=== PATIENT | male | born 1950 | race Caucasian/White ===

== ENCOUNTER 2019-03-13 14:11 | Observation (INO) | payer MEDICARE, OTHER ==
--- NOTE | ~2019-03-13 | HEMODYNAMI ---
PATIENT:DEMARCUS HE MEDICAL RECORD: [id number] : [birth year] [facility] D[id number] ADMISSION DATE: 03/13/19 Generatedon:03/14/201911:34 Patient name: DEMARCUS HE Patient #: [id number] SSN: : 1950 Date of study: 03/14/2019 Page: Of Hemodynamic Procedure Report Patient Data Patient Demographics Procedure consent was obtained First Name: DEMARCUS Gender: Male Last Name: NERI : 1950 Patient #: [id number] Age: 68 year(s) Race: Unknown Additional ID: [id number] Contact details Address: [address] [place] [address] circle State: [place] City: [place] Zip code: [address] Past Medical History Allergies Allergen Reaction Date Comments Reported Other allergy 03/14/2019 SULFA, SHELLFISH Admission Admission Data Admission Date: 03/13/2019 Admission Time: 23:27 Room #: D.2117 Lab Results Lab Result Date: 03/14/2019 Lab Result Time: 0:00 Biochemistry Name Units Result Min Max BUN mg/dl 19 --(----)*- 7 18 Creatinine mg/dl 1.5 --(----)-* 0.6 1.3 CBC Name Units Result Min Max Hematocrit % 41.7 -*(----)-- 42 54 Hemoglobin g/dl 14.7 --(-*--)-- 13.5 17.5 Procedure Procedure Types Cath Procedure Diagnostic Procedure LHC LHC w/Coronaries w/Grafts Sedation Charges Moderate Sedation up to 15 minutes PCI Procedure AMI/SVG/POSTPARTUM RN PTCA or Stent SVG-BMS/KAUSHIK Initial Procedure Description Procedure Date Procedure Date: 03/14/2019 Procedure Start Time: 11:14 Procedure End Time: 11:30 Procedure Staff Name Function Dieog Vaughn MD Performing Physician Ghazala Knight RT Monitor Anam Celeste RT Scrub Hailey Russo RN Nurse Procedure Data Cath Procedure Fluoroscopy Diagnostic fluoroscopy Total fluoroscopy Time: 5.2 time: 5.2 min min Diagnostic fluoroscopy Total fluoroscopy dose: dose: 1045 mGy 1045 mGy Contrast Material Contrast Material Type Amount (ml) Isovue 300 141 Entry Location Entry Primary Successful Side Size Upsize Upsize Entry Closure Succes sful Closure Location (Fr) 1 (Fr) 2 (Fr) Remarks Device Remarks Femoral Right 5 Fr 6 Fr Exoseal artery Short Estimated blood loss: 10 ml Diagnostic catheters Device Type Used For End Catheter Placement MULTIPACK Pigtail 5 Fr Procedure catheter MULTIPACK JL 4.0 5Fr Procedure catheter MULTIPACK 3DRC 5Fr Procedure catheter DIAGNOSTIC AR2 MOD 5 Fr Procedure catheter ([id number]) Procedure Complications No complications Procedure Medications Medication Administration Route Dosage Oxygen etCO2 Nasal cannula 2 l/min Lidocaine 2% added to field 20 Heparin Flush Bag added to field 2 bags (1000units/500ml NS) 0.9% NaCl I.V. 100 ml/hr Versed I.V. 1 mg Fentanyl I.V. 50 mcg Versed I.V. 1 mg Fentanyl I.V. 50 mcg Heparin Bolus I.V. 4000 units Nitroglycerin IC/IA I.C. 200 mcg Plavix P.O. 75 mg Hemodynamics Rest HGB: 14.7 (g/dl) Heart Rate: 54 (bpm) Snapshots Pre Cath Intra NCS Post Cath Vital Signs Time Heart Resp SPO2 etCO2 NIBP (mmHg) Rhythm Pain Sedation Rate (ipm) (%) (mmHg) Status Level (bpm) 11:06:06 64 28 96 0 140/86(108) NSR 0 (11) 10(A) , No pain 11:10:22 52 26 94 12.6 129/83(99) NSR 0 (11) 10(A) , No pain 11:14:42 68 22 96 39.5 128/76(94) NSR 0 (11) 10(A) , No pain 11:18:52 70 20 96 38 115/80(97) NSR 0 (11) 9(A) , No pain 11:23:08 61 53 95 37.3 117/64(89) NSR 0 (11) 9(A) , No pain 11:27:22 68 20 95 41 106/71(91) NSR 0 (11) 10(A) , No pain 11:33:28 72 20 94 43.3 117/68(89) NSR 0 (11) 10(A) , No pain Medications Time Medication Route Dose Verified Delivered Reason Notes Effectiveness by by 11:09:10 Oxygen etCO2 2 Diego Hart used for Nasal l/min Roderick Russo RN procedure cannula 11:09:16 Lidocaine 2% added 20ml Diego Cortez for local to vial Roderick Vaughn MD anesthetic field 11:09:24 Heparin Flush added 2 Diego Cortez used for Bag to bags Roderick Vaughn MD procedure (1000units/500ml field NS) 11:09:32 0.9% NaCl I.V. 100 Diego Hart Per physician ml/hr Roderick Russo RN 11:13:01 Fentanyl I.V. 50 Diego Hart for sedation mcg Roderick Russo RN 11:13:55 Versed I.V. 1 mg Diego Garciaie for sedation Roderick Russo RN 11:15:22 Versed I.V. 1 mg Diego Hart for sedation Roderick Russo RN 11:15:28 Fentanyl I.V. 50 Diego Hart for sedation mcg Roderick Russo RN 11:21:53 Heparin Bolus I.V. 4000 Diego Hart for verif ied units Roderick Russo RN anticoagulation with dr vaughn 11:26:23 Nitroglycerin I.C. 200 Diegoshaquille Cortez for IC/IA mcg Roderick Vaughn MD vasodilation 11:32:19 Plavix P.O. 75 mg Diego Hart for Roderick Russo RN antiplatelet therapy Procedure Log Time Note 10:49:59 Signed procedure consent form obtained from patient. 10:50:00 Diagnostic Cath status Urgent 10:50:02 Hailey Russo RN sent for patient. Start room use. 10:53:20 Time tracking: Call back (After hours or weekends) 10:53:26 Plan of Care:Hemodynamics will remain stable., Cardiac rhythm will remain stable., Comfort level will be maintained., Respiratory function will remain adequate., Patient/ family verbilizes understanding of procedure., Procedure tolerated without complication., Recovers from procedure without complications.. 10:55:30 Patient allergic to Other allergySULFA, SHELLFISH 10:56:08 Lab Result : BUN 19 mg/dl 10:56:08 Lab Result : Hemoglobin 14.7 g/dl 10:56:08 Lab Result : Creatinine 1.5 mg/dl 10:56:08 Lab Result : Hematocrit 41.7 % 11:00:27 Patient received from Med II to CCL 1 Alert and oriented. Tansferred to table in Supine position. 11:00:28 Warm blankets applied, and nadre hugger turned on for patient comfort. 11:00:29 Correct patient and procedure confirmed by team. 11:00:29 ECG and BP/O2 sat monitors applied to patient. 11:05:04 Vital chart was started 11:05:06 Baseline sample Acquired. 11:09:10 Oxygen 2 l/min etCO2 Nasal cannula was administered by Hailey Russo RN; used for procedure; 11:09:16 Lidocaine 2% 20ml vial added to field was administered by Diego Vaughn MD; for local anesthetic; 11:09:24 Heparin Flush Bag (1000units/500ml NS) 2 bags added to field was administered by Diego Vaughn MD; used for procedure; 11:09:32 0.9% NaCl 100 ml/hr I.V. was administered by Hailey Russo RN; Per physician; 11:10:39 Rhythm: sinus rhythm 11:10:41 Full Disclosure recording started 11:10:43 Pre-procedure instructions explained to patient. 11:10:43 Pre-op teaching completed and patient verbalized understanding. 11:10:45 Family in patients room. 11:10:46 Patient NPO since Midnight. 11:10:49 Is patient on blood thinner?Yes 11:10:59 PRE LOADED IN THE ER 5.3.19 11:11:00 Patient diabetic? No. 11:11:04 Previous problem with sedation/anesthesia? No ? 11:11:05 Snore? Yes 11:11:07 Sleep apnea? No 11:11:07 Deviated septum? No 11:11:08 Opens mouth fully? Yes 11:11:09 Sticks out tongue? Yes 11:11:11 Airway obstruction? No ? 11:11:12 Dentures? No ? 11:11:14 Pre procedure: right dorsailis pedis pulse 2+ Normal; easily identifiable; not easily obliterated 11:11:18 Patient pain scale 0/10 ?. 11:11:27 IV patent on arrival in right hand with 0.9% NaCl at [facility]. 11:11:29 Lab results completed and on chart. 11:11:32 Right groin area was prepped with chlora-prep and draped in sterile fashion 11:11:33 Alarms reviewed by R. N. 11:11:34 Sharps counted by scrub and verified by R.N. 11:11:40 Is the patient allergic to Iodine/contrast media? Yes. 11:11:42 Was the patient premedicated? Yes 11:11:44 Use device set Femoral Dx 11:11:45 ACIST Syringe (41619) opened to sterile field. 11:11:46 Bag Decanter (2002S) opened to sterile field. 11:11:47 ACIST Hand Control (66256) opened to sterile field. 11:11:47 ACIST Manifold (22956) opened to sterile field. 11:11:49 Tegaderm 4 x 4 (1626W) opened to sterile field. 11:11:51 Medline Cath Pack ([id number]) opened to sterile field. 11:11:51 DIAGNOSTIC WIRE .035 260cm J wire (181603) opened to sterile field. 11:11:52 DIAGNOSTIC Multipack 5Fr catheter set (GE3473) opened to sterile field. 11:11:53 SHEATH 5FR [place] (WRO158) opened to sterile field. 11:12:13 --------ALL STOP TIME OUT------ 11:12:14 Final Timeout: patient, procedure, and site verified with staff and physician. All members of the team are in agreement. 11:12:15 Right groin site verified by team. 11:12:17 Maximum allowable Isovue 300 dose 300ml. Physician notified. (300ml for normal creatinines. For patients with creatinine of 1.7 or higher multiply weight(kg) x 5 divided by creatinine.) 11:12:21 Fire Safety Assessment: A--An alcohol-based skin anteseptic being used preoperatively., C--Open oxygen or nitrous oxide is being used., D--An ESU, laser, or fiber-optic light is being used. 11:12:24 Physical assessment completed. ASA score P 2 - A patient with mild systemic disease as per Diego Vaughn MD. 11:12:27 Sedation plan: IV Moderate Sedation Medication:Versed, Fentanyl 11:13:01 Fentanyl 50 mcg I.V. was administered by Buffie Russo RN; for sedation; 11:13:55 Versed 1 mg I.V. was administered by Hailey Russo RN; for sedation; 11:14:51 Procedure started. 11:14:54 Zero performed for pressure channel P1 11:14:58 Local anesthetic to right femoral artery with Lidocaine 2% by Diego Vaughn MD.INITIAL ACCESS ONLY 11:15:07 A 5 Fr sheath was inserted into the Right Femoral artery 11:15:09 Zero performed for pressure channel P1 11:15:16 Zero performed for pressure channel P1 11:15:22 Versed 1 mg I.V. was administered by Hailey Russo RN; for sedation; 11:15:28 Fentanyl 50 mcg I.V. was administered by Hailey Russo RN; for sedation; 11:15:28 A MULTIPACK Pigtail 5 Fr catheter was advanced over the wire and used for Procedure. 11:15:46 LV gram done using BORREGO 11:15:48 Injector settings: Ml/sec: 10, Volume: 20, 11:15:53 EF : 50 % 11:15:55 Zero performed for pressure channel P1 11:16:03 Zero performed for pressure channel P1 11:16:11 Catheter removed. 11:17:03 A MULTIPACK JL 4.0 5Fr catheter was advanced over the wire and used for Procedure. 11:17:06 LCA angiography performed. 11:17:08 Catheter removed. 11:17:13 A MULTIPACK 3DRC 5Fr catheter was advanced over the wire and used for Procedure. 11:18:22 DODGE to LAD angiography performed. 11:18:29 RCA angiography performed. 11:18:40 Catheter removed. 11:18:46 A DIAGNOSTIC AR2 MOD 5 Fr catheter ([id number]) was advanced over the wire and used for Procedure. 11:19:02 SHEATH 6FR [place] (YAD046) opened to sterile field. 11:19:02 CHOICE PT Extra Support 182cm wire ([id number]) opened to sterile field. 11:19:02 INFLATOR Merit BasixCompak (VU0786) opened to sterile field. 11:19:42 SVG to Circ angiography performed. 11:20:19 Catheter removed. 11:20:32 GUIDE 6FR AR 2.0 catheter ([id number]) opened to sterile field. 11:21:03 Sheath upsized to a 6 Fr Short. 11:21:39 6 Fr AR 2 guide catheter was inserted over the wire 11::53 Heparin Bolus 4000 units I.V. was administered by Hailey Russo RN; for anticoagulation; verified with dr vaughn 11:22:28 SVG to RCA occluded. 11::57 CHOICE ES 182 wire advanced. 11:23:05 Wire advanced across lesion. 11:23:50 Place stent Inflation Number: 1 A TWAN RX 2.5 x 15 stent ([id number]) was prepped and advanced across the Dist RCA. The stent was deployed at 15 KIKE for 0:10 (min:sec). 11:24:27 Stent catheter was removed intact over wire. 11:25:24 Wire removed. 11::23 Nitroglycerin IC/IA 200 mcg I.C. was administered by Diego Vaughn MD; for vasodilation; 11:27:29 Guide catheter removed. 11:27:31 EXOSEAL 6Fr (EX600) opened to sterile field. 11:28:01 Sheath removed intact; hemostasis achieved with Exoseal to the Right Femoral artery. 11:28:09 Procedure ended.(Physican Out) 11:28:37 Fluoroscopy time 05.20 minutes. 11:28:40 Fluoroscopy dose: 1045 mGy 11:28:40 Flurop Dose total: 1045 11:28:43 Contrast amount:Isovue 300 141ml. 11:28:44 Sharps counted by scrub and verified by R.N. 11:28:47 Post-op/insertion site Right Femoral artery dressed using a 4 x 4 and Tegaderm. 11:28:49 Post-procedure physical assessment completed. ASA score P 2 - A patient with mild systemic disease as per Diego Vaughn MD. 11:28:52 Post procedure rhythm: sinus rhythm 11:28:54 Estimated blood loss: 10 ml 11:28:56 Post procedure instruction explained to patient.Patient verbalizes understanding. 11::56 Patient needs reinforcement of post procedure teaching. 11:29:26 Procedure type changed to Cath procedure, Diagnostic procedure, LHC, LHC w/Coronaries w/Grafts, Sedation Charges, Moderate Sedation up to 15 minutes, PCI procedure, AMI/SVG/POSTPARTUM RN PTCA or Stent, SVG-BMS/KAUSHIK Initial 11:30:06 Procedure and supply charges have been captured, reviewed, submitted and are correct. 11:30:08 Procedure Complication : No complications 11:30:11 Vital chart was stopped 11:30:11 See physician's report for complete and final results. 11:30:14 Report given to [facility] II. 11:30:17 Patient transfered to [facility] with Bed. 11:30:18 Procedure ended. 11:30:18 Full Disclosure recording stopped 11:30:22 End room use (Document Last) 11:32:19 Plavix 75 mg P.O. was administered by Hailey Russo RN; for antiplatelet therapy; Intervention Summary Intervention Notes Time ActionType Lesion and Equipment Used Action# Pressure Duration Attributes 11:23:50 Place stent Dist RCA TWAN RX 2.5 x 1 15 00:10 15 stent ([id number]) Device Usage Item Name Manufacture Quantity Catalog Number Hospital Part Current M inimal Lot# / Charge Number Stock Stock Serial# Code ACIST Syringe Acist 1 03468 275552 801144 521892 2 0 (95724) Medical Systems Inc Bag Decanter Microtek 1 2001S 773537 02128 290911 5 (2001S) Medical Inc. ACIST Hand Acist 1 88113 259709 226347 109916 5 Control Medical (80709) Systems Inc ACIST Manifold Acist 1 74065 632724 418409 137541 5 (99013) Medical Systems Inc Tegaderm 4 x 4 3M 1 1626W 533040 109366 966216 5 (1626W) Medline Cath Medline 1 [id number] 165515 31597 076737 5 Pack ([id number]) DIAGNOSTIC [facility] [place] 1 498971 195294 512022 657966 3 0 WIRE .035 260cm J wire (804066) DIAGNOSTIC Cardinal 1 CZ7757 756406 93013 393788 3 0 Multipack 5Fr Health catheter set (YU9993) SHEATH 5FR Terumo 1 GNL784 169013 017450 594220 5 [place] (MPV365) MULTIPACK Cardinal 1 068713 5 Pigtail 5 Fr Health catheter MULTIPACK JL Cardinal 1 911628 5 4.0 5Fr Health catheter MULTIPACK 3DRC Cardinal 1 248910 5 5Fr catheter Health DIAGNOSTIC AR2 Cardinal 1 [id number] 653148 876443 731860 2 0 MOD 5 Fr Health catheter (559951H) SHEATH 6FR Terumo 1 SSO467 939869 252861 243747 4 0 [place] (ESJ352) CHOICE PT Lookout 1 [id number] 337584 387203 223260 5 Extra Support Scientific 182cm wire ([id number]) INFLATOR Merit Merit 1 XG9268 991241 367882 454952 1 5 [facility] Medical (VL7672) GUIDE 6FR AR Medtronic 1 LY2AE22 417340 94295 841295 1 2.0 catheter (HQ0KZ13) TWAN RX 2.5 x Medtronic 1 [id number] 886638 0883694 584873 5 [id number] 15 stent ([id number]) EXOSEAL 6Fr Cardinal 1 EX600 146539 189368 583475 1 0 (EX600) Health Signature Audit [place] Stage Time Signature Unsigned Intra-Procedure 03/14/2019 Ghazala Kngiht 11:34:05 AM RT(R) Signatures Monitor : Ghazala Knight Signature : RT Date : Time : [address] [place] [address]
[2019-03-13] MEDS ORDERED: LOPRESSOR25 MG PO (14:21)
[2019-03-13] MEDS ORDERED: COZAAR100 MG PO (14:21)
[2019-03-13] MEDS ORDERED: LIPITOR10 MG PO (14:22)
[2019-03-13] MEDS ORDERED: BAYER CHEWABLE81 MG PO (14:22)
[2019-03-13] MEDS ORDERED: HYDROCHLOROTHIA25 MG PO (14:22)
[2019-03-13 14:48] VITALS: BP 134/82
--- NOTE | 2019-03-13 14:51 | NUR ---
DR. CALLAHAN OFFICE CALLED TO ASK IF HE WOULD CONSENT TO LETTING PT HAVE A ASPIRIN FOR CHEST PAIN COMPLAINTS.HE OKAYED ASPIRIN.
[2019-03-13 14:55] LABS: BASOPHILS 0.1 % (0-2); EOSINOPHILS 1.8 % (0-7); HEMATOCRIT 41.7 % (42.0-54.0); HEMOGLOBIN 14.7 g/dL (13.5-17.5); MCH 30.9 pg (26.0-34.0); MCHC 35.3 g/dL (31.0-37.0); MCV 87.6 fL (80.0-100.0); MEAN PLATELET VOLUME 11.4 fL (7.4-10.4); MONOCYTES 6.6 % (2-11); NEUTROPHILS 74.5 % (40-80); RBC 4.76 10x6/uL (4.20-6.10); RDW 12.8 % (11.5-14.5); WBC 7.9 10x3/uL (4.8-10.8)
[2019-03-13 15:02] LABS: APTT 35.5 SECONDS (22.8-39.4); INR 1.05 (0.85-1.17); PROTIME 13.2 SECONDS (11.6-15.0)
[2019-03-13 15:03] LABS: PLATELET COUNT 217 10x3/uL (130-400)
[2019-03-13 15:37] LABS: ALBUMIN 3.1 g/dL (3.4-5.0); ALKALINE PHOSPHATASE 81 U/L (46-116); ALT (SGPT) 23 U/L (10-68); BILIRUBIN - TOTAL 0.58 mg/dL (0.2-1.3); CALC OSMOLALITY 284 mosm/kg (275-300); CALCIUM 8.4 mg/dL (8.5-10.1); CARBON DIOXIDE 27.1 mmol/L (21.0-32.0); CHLORIDE - SERUM 102 mmol/L (98-107); CREATININE - SERUM 1.5 mg/dL (0.6-1.3); GLUCOSE 197 mg/dL (74-106); POTASSIUM - SERUM 3.1 mmol/L (3.5-5.1); PROTEIN - SERUM 7.2 g/dL (6.4-8.2); SODIUM 139 mmol/L (136-145); UREA NITROGEN 19 mg/dL (7-18); eGFR NON AFRICAN AMERICAN 49 mL/min (90-120)
[2019-03-13 15:49] LABS: CKMB 0.6 U/L (0.0-3.6); CREATINE KINASE 38 UL (21-232); MAGNESIUM - SERUM 1.9 mg/dL (1.8-2.4)
[2019-03-13 15:51] LABS: TROPONIN-I < 0.017 ng/mL (0.000-0.060)
--- NOTE | 2019-03-13 17:35 | NUR ---
TRANSFER FROM ER BY W/C. PRANAVINTED TO ROOM. CALL LIGHT IN REACH. WILL CONT. PLAN OF CARE.
[2019-03-13 17:48] VITALS: BP 131/58; BMI 31.7
[2019-03-13 20:00] VITALS: BP 111/69
--- NOTE | 2019-03-13 20:23 | NUR ---
INITIAL ROUNDS AND ASSESMENT COMPLETED. PT IN ROOM WITH MULTIPLE FAMILY PRESENT. SR PER TELEMETRY. O2 @ 2L/NC WITH NONLABORED RESPIRATIONS. SALINE LOCK TO RFA. NO CHEST PAIN AT THIS TIME. INSTRUCTED ON NPO AFTER MIGNIGHT UNTIL SEEN BY DR CONNER IN AM. MONITOR AND CPOC.
[2019-03-14] VITALS: BP 110/59
--- NOTE | 2019-03-14 01:43 | NUR ---
RESTING IN BED WITH NO DISTRESS. CALL LIGHT IN REACH. MONITOR AND CPOC.
[2019-03-14 03:00] VITALS: BP 108/63
--- NOTE | 2019-03-14 07:30 | NUR ---
RECEIVED PT IN BED AAOX4 RESP UNLABORED SKIN W/D NAD NOTED
[2019-03-14 08:44] VITALS: BP 126/65
--- NOTE | 2019-03-14 10:50 | NUR ---
PT TO PROJECT MANAGEMENT ANALYST VIA BED
--- NOTE | 2019-03-14 11:31 | HP ---
PATIENT: DEMARCUS HE MEDICAL RECORD: [id number] ACCOUNT: [id number] LOCATION:[address] : [birth year] ADMISSION DATE: 03/13/19 PCP: FABIO VERGARA DO HISTORY AND PHYSICAL EXAMINATION DIAGNOSES: 1. Unstable angina. 2. Coronary artery disease. 3. Status post coronary bypass graft surgery. 4. Abnormal ECG. 5. Hypertension. 6. Hyperlipidemia. HISTORY OF PRESENT ILLNESS: This is a gentleman, who presents with unstable anginal symptomatology since Saturday. He has had pain in an increasing fashion. His pain was relieved with nitros yesterday. His EKG suggests lateral ischemia. He is on maximum medical therapy with losartan, metoprolol. His heart rate is in the 50s. His systolic blood pressure in the 100-110 region, hence there was no room for continued medical management. PHYSICAL EXAMINATION: GENERAL APPEARANCE: Well-nourished, well-developed, appears stated age. Level of distress, comfortable. PSYCHIATRIC: Mental status, alert, normal affect. Orientation, oriented to time, place and person. EYES: Lids and conjunctiva, noninjected. No discharge, no pallor. ENT: Lips, teeth, gums, normal dentition. Oropharynx, no cyanosis, no pallor. NECK: Carotid arteries, bilateral normal upstroke, no bruits, no thrills. JUGULAR VEINS: No jugular venous pressure or distention. CERVICAL LYMPH NODES: Nontender, nonenlarged. THYROID: Not enlarged. Nontender. No nodules. LUNGS: Respiratory effort, unlabored. CHEST: Normal curvature. No thoracic deformity. No chest wall tenderness. Percussion, resonant. Auscultation, clear. No wheezes, no rales, no rhonchi. CARDIOVASCULAR: Precordial exam, nondisplaced. No heaves or pericardial thrills. Rate and rhythm, regular. Heart sounds, normal S1, normal S2. No S3, no gallop, no rub. Systolic murmur, not heard. Diastolic murmur, not heard. EXTREMITIES: No cyanosis, no edema. Peripheral pulses, full and equal in all extremities, except as noted. No bruits appreciated. ABDOMEN: Soft, nondistended. Normal aorta. No bruit. Nontender. No masses. Liver, nontender, no hepatomegaly. Spleen, nontender, no splenomegaly. MUSCULOSKELETAL: No joint tenderness. No joint swelling. No erythema. NEUROLOGICAL: Normal gait, normal strength, normal tone. SKIN: Warm and dry. OVERALL IMPRESSION: Chest pain despite maximal medical therapy with abnormal ECG and a history of bypass surgery. Most likely, he has recurrent hemodynamically significant coronary artery disease or threatened graft failure. We will proceed with coronary angiography. Further care depends upon findings of the angiography. TRANSINT:[id number] Voice Confirmation ID: [id number] DOCUMENT ID: [id number] HISTORY AND PHYSICAL [id number] DEMARCUS HE JEFFREY MD at 1131 CC: [id number] DICTATION DATE: 03/14/19915 CLEANER AND TRIMMER: 03/14/19 0931 ADM IN [facility] [address] [place] [address]
[2019-03-14 12:00] VITALS: BP 112/63
--- NOTE | 2019-03-14 12:00 | NUR ---
RECEIVED PT BACK TO ROOM VIA BED FROM [facility] VSS PPPX4 DRSG TO RT GROIN C/D/I NO SIGNS OF BLEEDING
[2019-03-14 12:15] VITALS: BP 112/62
[2019-03-14] MEDS ORDERED: PLAVIX75 MG PO (12:35)
[2019-03-14 13:31] VITALS: BP 120/63
--- NOTE | 2019-03-14 18:15 | NUR ---
REVIEWED DISCHARGE INSTRUCTIONS WITH PT STATES UNDERSTANDING COPY GIVEN DCD SALINE LOCK TO RFA WITH IV CATHETER INTACT SITE FREE OF REDNESS OR EDEMA PT DISCHARGED HOME LEFT UNIT IN STABLE CONDITION WITH ALL PERSONAL BELONGINGS VIA W/C
--- NOTE | 2019-03-16 08:59 | MORECARE ---
CASE MANAGEMENT DISCHARGE SUMMARY PATIENT: DEMARCUS HE UNIT: [id number] ADM DATE: 03/13/19 AGE: 68 : [birth year] SEX: M ROOM/BED: D.2117 AUTHOR: BAILEE PENNY PHYSICIAN: REFERRING PHYSICIAN: GENA CONNER MD DATE OF SERVICE: 03/16/19 Discharge Plan Patient Name: DEMARCUS HE Facility: [facility]:[place] : 1950 Planned Disposition: Home Anticipated Discharge Date: 03/14/19 Discharge Date: 03/14/2019 Expected LOS: 1 Initial Reviewer: [email or web address] Initial Review Date: 03/16/2019 Generated: 03/16/19 9:58 am Patient Name: DEMARCUS HE Page 77907 at 0859 All edits/amendments must be made on the electronic document DICTATION DATE: 03/16/19 0858 VAMP PRESSER: CHERELLE 03/16/19 0858 RPT#: [id number] DC DATE:03/14/19 STATUS: DIS IN [facility] [address] [place] [address] END OF REPORT
--- NOTE | 2019-03-20 16:41 | OP ---
PATIENT NAME: DEMARCUS HE MEDICAL RECORD: [id number] :[birth year] LOCATION:D.M2 D.2117 ADMISSION DATE:03/13/19 SURGEON: GENA CONNER MD DATE OF OPERATION: 03/14/2019 PROCEDURES: 1. PTCA and stent of RCA. 2. Left heart catheterization. 3. Selective coronary angiography. 4. DODGE angiography. 5. Vein graft angiography. 6. Left ventriculogram. INDICATIONS: Unstable angina and coronary artery disease. DESCRIPTION OF PROCEDURE IN DETAIL: After informed consent was obtained and after detailed explanation of risks, benefits as well as alternative therapies, the patient elected to proceed with angiogram and angioplasty. The right femoral area was prepped and draped in normal sterile fashion. Right femoral artery was cannulated via modified Seldinger technique with placement of 6-Welsh sheath. All catheters exchanged through this sheath. FINDINGS: Left ventriculogram was performed in a standard 30-degree BORREGO view, reveals good cardiac wall motion throughout all segments. Overall ejection fraction estimated at 50%. SELECTIVE CORONARY ANGIOGRAPHY: 1. Left main is with no significant angiographic disease. 2. Left anterior descending has 80% to 90% stenosis in the mid proximal vessel. 3. The left circumflex has 80% to 90% stenosis in the mid vessel. 4. DODGE to the LAD is widely patent. Distal LAD is diffusely diseased, but widely patent. 5. Vein graft to circumflex is widely patent. Distal OM is widely patent. 6. Right coronary has a 90% stenosis in the mid vessel. 7. Vein graft to the RCA is closed. PTCA AND STENT OF THE RCA: The stent used is a 2.5 x 15-mm Carlito. Result was 0% residual stenosis. OVERALL IMPRESSION: Successful PTCA and stent of the RCA going from 90% initial stenosis to 0% residual. TRANSINT:[id number] Voice Confirmation ID: [id number] DOCUMENT ID: [id number] GENA CONNER MD at 1641 CC: [id number] DICTATION DATE: 03/14/19 1134 MASTER BLACK BELT: 03/14/19 1158 DIS IN 03/14/19 [facility] [address] [place] [address]
--- NOTE | 2019-03-20 16:41 | DS ---
PATIENT:DEMARCUS MCMAHAN :48 MEDICAL RECORD: [id number] DISCHARGE SUMMARY ADMISSION DATE: 03/13/19 DISCHARGE DATE: 03/14/19 DATE OF DISCHARGE: 03/14/2019. DIAGNOSES: 1. Unstable angina. 2. Coronary artery disease. 3. Percutaneous transluminal coronary angioplasty stent right coronary artery this admission. 4. Hypertension. 5. Hyperlipidemia. HOSPITAL COURSE: Mr. Mcmahan presents with unstable anginal symptomatology, found to have a close graft to the RCA and 90% stenosis of the RCA, underwent successful PTCA stent of the RCA, discharged home to follow up with [facility] 1 month with the addition of Plavix to his medical regimen. TRANSINT:[id number] Voice Confirmation ID: [id number] DOCUMENT ID: [id number] GENA CONNER MD at 1641 CC: [id number] DICTATION DATE: 03/14/19 1131 HEART SURGEON: 03/14/19 1155 DIS IN 03/14/19 [place] [id number] [place] [address]
== END 2019-03-14 18:15 | disposition home or self-care (01) ==
LOC: D.ER 14:11 → D.M2 14:11 → D.OPS 14:11 → EDSTATUS 15:59 → D.OPS 16:53 → D.M2 16:53 → EDSTATUS 23:26 → OBSVTIME 23:27 → D.M2 23:27
PROVIDERS: Family Medicine; ADMIT Internal Medicine Interventional Cardiology; ATTEND Internal Medicine Interventional Cardiology
DX: I25.110 Atherosclerotic heart disease of native coronary artery with unstable angina pectoris (principal); R94.31 Abnormal electrocardiogram [ECG] [EKG]; I10 Essential (primary) hypertension; E78.5 Hyperlipidemia, unspecified
CPT/HCPCS: 93459; C9600

== ENCOUNTER 2019-03-17 13:34 | Emergency (ER) | payer MEDICARE, OTHER ==
[~2019-03-17] VITALS: Ht 177.8 cm; Wt 95.5 kg
[~2019-03-17 13:34] MED LIST: BAYER CHEWABLE81 MG PO; COZAAR100 MG PO; HYDROCHLOROTHIA25 MG PO; LIPITOR10 MG PO; LOPRESSOR25 MG PO; PLAVIX75 MG PO
[2019-03-17 13:46] VITALS: Ht 177.8 cm; Wt 95.5 kg
[2019-03-17 14:02] LABS: BASOPHILS 0.3 % (0-2); EOSINOPHILS 3.5 % (0-7); HEMATOCRIT 41.9 % (42.0-54.0); HEMOGLOBIN 14.7 g/dL (13.5-17.5); IMMATURE GRANULOCYTES 0.5 % (0-5); LYMPHOCYTES 26.2 % (15-50); MCH 30.5 pg (26.0-34.0); MCHC 35.1 g/dL (31.0-37.0); MCV 86.9 fL (80.0-100.0); MEAN PLATELET VOLUME 10.3 fL (7.4-10.4); MONOCYTES 9.3 % (2-11); NEUTROPHILS 60.2 % (40-80); RBC 4.82 10x6/uL (4.20-6.10); RDW 12.4 % (11.5-14.5)
[2019-03-17 14:03] LABS: PLATELET COUNT 275 10x3/uL (130-400)
[2019-03-17 14:23] LABS: APTT 31.5 SECONDS (22.8-39.4); INR 1.03 (0.85-1.17)
[2019-03-17 14:28] LABS: ALBUMIN 3.3 g/dL (3.4-5.0); ALKALINE PHOSPHATASE 80 U/L (46-116); ALT (SGPT) 43 U/L (10-68); BILIRUBIN - TOTAL 0.23 mg/dL (0.2-1.3); CALC OSMOLALITY 285 mosm/kg (275-300); CALCIUM 8.9 mg/dL (8.5-10.1); CARBON DIOXIDE 28.7 mmol/L (21.0-32.0); CHLORIDE - SERUM 104 mmol/L (98-107); CREATININE - SERUM 1.3 mg/dL (0.6-1.3); GLUCOSE 170 mg/dL (74-106); POTASSIUM - SERUM 3.5 mmol/L (3.5-5.1); PROTEIN - SERUM 7.1 g/dL (6.4-8.2); SODIUM 139 mmol/L (136-145); UREA NITROGEN 25 mg/dL (7-18); eGFR NON AFRICAN AMERICAN 58 mL/min (90-120)
[2019-03-17 14:40] LABS: CKMB 1.6 U/L (0.0-3.6); CREATINE KINASE 38 UL (21-232); MAGNESIUM - SERUM 1.8 mg/dL (1.8-2.4); TROPONIN-I 0.017 ng/mL (0.000-0.060)
[2019-03-17 16:27] VITALS: BP 151/94
== END 2019-03-17 16:28 | disposition home or self-care (01) ==
LOC: D.ER 13:34
PROVIDERS: Family Medicine
DX: R07.9 Chest pain, unspecified (principal); I25.10 Atherosclerotic heart disease of native coronary artery without angina pectoris; I10 Essential (primary) hypertension

== ENCOUNTER → 2019-04-14 10:31 | Outpatient (CLI) | payer MEDICARE, OTHER ==
[2019-03-17 13:46] VITALS: BMI 30.1
== END | disposition home or self-care (01) ==
LOC: D.HCCARDIO 10:31
PROVIDERS: ATTEND Internal Medicine Cardiovascular Disease
DX: I25.10 Atherosclerotic heart disease of native coronary artery without angina pectoris (principal)